=== PATIENT | female | born 1985 | race Caucasian/White ===

== ENCOUNTER 2017-08-29 09:31 | Inpatient (IN) | payer OTHER ==
[2017-08-29] MEDS ORDERED: LACTATED RINGERS 1,000 ML IV ONE (10:23)
[2017-08-29 11:09] LABS: Bilirubin,Urine NEG (Negative); Blood,Urine MOD (Negative); Color,Urine Straw (Yellow); Mucus,Urine FEW /HPF; Protein,Urine <15 mg/dL mg/dL (Negative); Urobilinogen,Urine < 2.0 mg/dL (<2.0)
[2017-08-29] MEDS ORDERED: DILAUDID ONE (11:42)
[2017-08-29] MEDS ORDERED: QUELICIN ONE (11:42)
[2017-08-29] MEDS ORDERED: DIPRIVAN 10 MG/ML IV ONE (11:42)
[2017-08-29] MEDS ORDERED: XYLOCAINE MPF 2% ONE (11:42)
[2017-08-29] MEDS ORDERED: CELESTONE SOLUSPAN IM ONE ×2 (11:48→11:52)
[2017-08-29] MEDS ORDERED: MAGNESIUM SULFATE 4GM/100ML 4 GM/100 ML BAG IV ONE (11:48)
[2017-08-29] MEDS ORDERED: PEPCID IV ONE (11:51)
[2017-08-29] MEDS ORDERED: BICITRA PO ONE (11:51)
[2017-08-29] MEDS ORDERED: REGLAN IV ONE (11:51)
[2017-08-29] MEDS ORDERED: EMLA TP PRN (11:51)
--- NOTE | 2017-08-29 11:58 | History and Physical Report ---
History of Present Illness Date of examination: 08/29/17 Date of admission: 08/29/17 09:32 Chief complaint: labor History of present illness: 31-year-old at 26+6 weeks presents in labor, she is a [facility] patient. Essential history this patient with prior history of delivery at 23 weeks (in 2013) with demise now on 17 HP presents in labor. She had vaginal bleeding and cramping earlier this morning at home and decided to present to triage. In triage, ultrasound shows no evidence of abruption. Cervix appears to be open with feet in cervix. Appears dilated at 2.8 cm. On my exam, feet could be palpated in the vagina. heart tones present Past History Past Medical History: no pertinent history Past Surgical History: no surgical history [facility] History: denies: chlamydia, gonorrhea, hepatitis B, hepatitis C, HIV, syphilis Social history: single, full code. denies: smoking, alcohol abuse, prescription drug abuse, IV drug use - Obstetrical History Expected Date of Delivery: 11/29/17 Actual Gestation: 26 Week(s) 6 Day(s) : 2 Para: 1 (PTD at 23 wks w/ demise) Medications and Allergies Allergies Allergy/AdvReac Type Severity Reaction Status Date / Time No Known Allergies Allergy Verified 08/29/17 10:05 Home Medications Medication Instructions Recorded Confirmed Last Taken Type Hydroxyprogesterone Caproate 250 mg IM QWEEK 08/29/17 08/29/17 08/26/17 12:00 History [[place]] 1 Vit-Fe Fumar-FA [ 1 tab PO QDAY 08/29/17 08/29/17 08/28/17 21: 00 History Vitamin] 1 Active Meds: Active Medications Betamethasone Acet/Betameth SodPhos (Celestone Soluspan) 12 mg IM ONCE ONE Stop: 08/29/17 11:53 Citric Acid/Sodium Citrate (Bicitra) 30 ml PO ONCE ONE Stop: 08/29/17 11:52 Famotidine (Pepcid) 20 mg IV ONCE ONE Stop: 08/29/17 11:52 Cefazolin Sodium (Ancef/Sterile Water 2 Gm/20 Ml) 2 gm in 20 mls @ 80 mls/hr IV PREOP NR; Protocol Stop: 08/29/17 23:59 Lactated Ringer's (Lactated Ringers) 1,000 mls @ 2,250 mls/hr IV PREOP NATALIE Stop: 08/30/17 12:27 Oxytocin/Sodium Chloride (Pitocin/Ns 20 Unit/1000ml Drip) 20 units in 1,000 mls @ 0 mls/hr IV TITR NATALIE Lidocaine/Prilocaine (Emla) 1 applic TP ONCE PRN PRN Reason: for jeffery catheter insertion Metoclopramide HCl (Reglan) 10 mg IV ONCE ONE Stop: 08/29/17 11:52 Review of Systems Constitutional: no fever, no chills, no weakness, no malaise Eyes: no diplopia, no discharge, no photophobia Cardiovascular: no chest pain, no syncope, no lightheadedness, no shortness of breath, no dyspnea on exertion, no high blood pressure, no decreased exercise tolerance Respiratory: no cough with sputum, no excessive sputum, no hemoptysis, no shortness of breath, no dyspnea on exertion Gastrointestinal: no abdominal pain, no nausea, no vomiting Genitourinary: vaginal bleeding, contractions, no vaginal discharge, no leakage of fluid - Vital Signs Vital signs: Vital Signs Temp Pulse Resp Pulse Ox 97.4 F L 111 H 20 97 08/29/17 09:45 08/29/17 09:45 08/29/17 09:45 08/29/17 09:45 Temp Pulse Resp BP Pulse Ox 97.4 F L 84 20 116/68 97 08/29/17 09:45 08/29/17 11:55 08/29/17 09:45 08/29/17 11:55 08/29/17 11:32 - Physical Exam Cardiovascular: Regular rate, Normal S1, Normal S2 Lungs: Positive: Clear to auscultation, Normal air movement Abdomen: Positive: normal appearance, soft. Negative: distention, tenderness, guarding, rigidity Genitourinary (Female): Positive: normal external genitalia Cervix: Positive: other (Cervix Open with feet palpated) Uterus: Positive: enlarged (EFW ~ 1500 g) Adnexa: both: normal Extremities: Positive: normal - Obstetrical Cervical Dilatation: 4 ( feet in vagina) Results All other labs normal. Assessment and Plan A: 31-year-old at 26+6 weeks with labor and breech presentation P: -Proceed to or KERI -She received Celestone 1 and magnesium -She has been consented - Patient Problems (1) 26 weeks gestation of Current Visit: Yes Status: Acute (2) Breech presentation Current Visit: Yes Status: Acute (3) Active labor Current Visit: Yes Status: Acute
[2017-08-29] MEDS ORDERED: PITOCin/NS 20 UNIT/1000ML DRIP 20 UNITS/1,000 ML BAG IV SCH ×2 (12:00→14:00)
[2017-08-29] MEDS ORDERED: LACTATED RINGERS 1,000 ML IV SCH (12:00)
[2017-08-29] MEDS ORDERED: ANCEF/STERILE WATER 2 GM/20 ML 2 GM/20 ML SYRINGE IV NR (12:00)
[2017-08-29] MEDS ORDERED: WATER FOR IRRIG STERILE IR ONE (12:00)
[2017-08-29] MEDS ORDERED: NACL 0.9% IR ONE (12:10)
[2017-08-29] MEDS ORDERED: ANCEF/STERILE WATER 2 GM/20 ML IV ONE (12:10)
[2017-08-29] MEDS ORDERED: NACL 0.9% 1000 ML 1,000 ML ONE (12:14)
[2017-08-29] MEDS ORDERED: METHERGINE IM ONE (12:31)
[2017-08-29] MEDS ORDERED: NEO SYNEPHRINE/NS Syringe(OR USE) IV ONE (12:33)
[2017-08-29] MEDS ORDERED: ZOFRAN ONE (12:44)
[2017-08-29 13:01] LABS: Basophils # (Auto) 0.1 K/mm3 (0.0-0.1); Basophils % (Auto) 0.7 % (0.0-1.8); Eosinophils % (Auto) 0.4 % (0.0-4.3); Hematocrit 33.6 % (30.3-42.9); Hemoglobin 11.3 gm/dl (10.1-14.3); Lymphocytes # (Auto) 1.4 K/mm3 (1.2-5.4); Lymphocytes % (Auto) 15.6 % (13.4-35.0); Mean Corpuscular HGB Conc 34 % (30-34); Mean Corpuscular Hemoglobin 31 pg (28-32); Mean Corpuscular Volume 92 fl (79-97); Monocytes # (Auto) 0.6 K/mm3 (0.0-0.8); Platelet Count 132 K/mm3 (140-440); Red Blood Count 3.65 M/mm3 (3.65-5.03); Red Cell Distribution Width 14.4 % (13.2-15.2)
--- NOTE | 2017-08-29 13:01 | Operative Report ---
Operative Report Operative Report: DATE: 08/29/2017 PREOPERATIVE DIAGNOSIS: 31-year-old at 26+6 weeks, breech presentation, labor with feet in the vagina, POSTOP DIAGNOSIS: As Above NAME OF PROCEDURE: Primary low transverse section SURGEON: MILA DARNELL MD PUBLICITY MANAGER: [] ANESTHESIA: Gen. EBL: 900 mL PATHOLOGY SPECIMEN: Placenta URINE OUTPUT:[] FINDINGS: Baby girl in [place]ling breech presentation, time of 1217, Nuchal cord x 2, weight is 1125 g or 2.48 pounds, Apgars 4, 7, and 8, normal uterus tubes and ovaries bilaterally DESCRIPTION OF PROCEDURE: After informed consent, patient was taken to the operating room where she was prepped and draped in a sterile fashion. Pfannestial incision was performed 2 cm above the pubic symphysis. This was then carried down to the underlying rectus fascia which was scored in the midline. The fascial incision was extended laterally with the use of Kenney scissors, anterior leaf was then grasped with Bon's elevated dissected sharply and bluntly off the underlying rectus. In a similar fashion the inferior leaf was grasped elevated dissected sharply and bluntly off the underlying rectus. The rectus was in the midline and the peritoneal cavity was entered without difficulty. After good visualization of the bladder the peritoneal layer was extended up and down; bladder blade was placed in the patient's pelvic cavity, bladder flap could not be created. A hysterotomy incision was then performed with bloody amniotic fluid noted. Infant in footling breech presentation was delivered without difficulty in the usual manner; cord was clamped cut and was handed over to waiting NICU staff. The placenta was then delivered intact, the uterus was then exteriorized cleared of all clots and debris. Her hysterotomy incision was then closed in a running locked fashion with 0 Vicryl on a CTX; using the same suture were able to imbricate the initial layer. The uterus was then returned to the patient's pelvic cavity; the peritoneal edges were grasped with hemostats and Maryse's; irrigation was used to clear the gutters of all clots and debris. Tisseel hemostatic agent was applied copiously over the hysterotomy incision. The peritoneal layer was closed in a running fashion with 3-0 Vicryl; the rectus was reapproximated with a single ahxivi-ln-tbbiz stitch. The fascia was then closed in a running fashion with 0 Vicryl; the subcutaneous layer was reapproximated with a single lodvrb-bb-[id number] stitch. The skin was then closed in a subcuticular manner with 4-0 Monocryl. She tolerated the procedure well lap and instrument counts were correct 2, she did receive 2 grams of Ancef prior to the procedure. She is transferred to PACU in stable condition.
[2017-08-29] MEDS ORDERED: PHENERGAN PR PRN (13:02)
[2017-08-29] MEDS ORDERED: MILK OF MAGNESIA PO PRN (13:02)
[2017-08-29] MEDS ORDERED: NARCAN 0.4 MG/1 ML IV PRN ×2 (13:02)
[2017-08-29] MEDS ORDERED: MYLICON PO PRN (13:02)
[2017-08-29] MEDS ORDERED: TUCKS PAD TP PRN (13:02)
[2017-08-29] MEDS ORDERED: MOTRIN PO PRN (13:02)
[2017-08-29] MEDS ORDERED: ZOFRAN IV PRN ×2 (13:02)
[2017-08-29] MEDS ORDERED: PERCOCET 5/325 PO PRN (13:02)
[2017-08-29] MEDS ORDERED: SENOKOT PO PRN (13:02)
[2017-08-29] MEDS ORDERED: BENADRYL IV PRN (13:02)
[2017-08-29] MEDS ORDERED: LANSINOH TP PRN (13:02)
[2017-08-29] MEDS ORDERED: TYLENOL PO PRN (13:02)
[2017-08-29] MEDS ORDERED: ANUCORT-HC PR PRN (13:02)
[2017-08-29] MEDS ORDERED: TORADOL IV PRN ×2 (13:02→13:14)
[2017-08-29] MEDS ORDERED: DILAUDID IV PRN (13:14)
[2017-08-29] MEDS ORDERED: TORADOL ONE (13:31)
[2017-08-29] MEDS ORDERED: SODIUM CHLORIDE FLUSH SYRINGE 10 ML IV NR (14:00)
[2017-08-29] MEDS ORDERED: MORPHINE PCA 30MG/30ML IV SCH (14:00)
[2017-08-29] MEDS ORDERED: NACL 0.9% 1000 ML 1,000 ML IV SCH (14:00)
[2017-08-29] MEDS: D5LR 1,000 ML IV SCH (18:20)
[2017-08-30 01:21] LABS: Hematocrit 27.9 % (30.3-42.9); Hemoglobin 9.2 gm/dl (10.1-14.3)
[2017-08-30] MEDS: D5LR 1,000 ML IV SCH (01:40)
[2017-08-30] MEDS: SENOKOT S PO SCH ×2 (09:59→20:31)
[2017-08-30] MEDS: PRENATAL VITAMIN PO SCH (09:59)
[2017-08-30] MEDS: FEOSOL PO SCH (09:59)
--- NOTE | 2017-08-30 10:00 | Progress Note ---
Assessment and Plan A: POD #1 Asymptomatic Anemia P: Follow Routine PostOp orders Continue FESO4 Subjective - Subjective Date of service: 08/30/17 Patient reports: appetite normal, voiding normally, pain well controlled, flatus : in NICU Objective - Vital Signs Latest vital signs: Vital Signs Temp Pulse Resp BP BP Pulse Ox 08/30/17 08:25 97.7 F 63 20 105/64 100 08/30/17 03:10 98.3 F 64 16 94/53 08/30/17 00:33 98.8 F 67 18 89/50 08/29/17 20:17 98.4 F 78 18 101/61 08/29/17 18:23 16 08/29/17 16:45 97.9 F 80 18 107/65 08/29/17 16:00 20 08/29/17 15:15 98.6 F 96 H 16 111/64 95 08/29/17 14:45 107 H 20 117/66 99 08/29/17 14:26 16 08/29/17 14:05 98.1 F 92 H 16 114/71 99 08/29/17 13:56 18 08/29/17 13:50 87 18 114/66 99 08/29/17 13:35 89 18 113/70 99 08/29/17 13:20 82 18 113/67 99 08/29/17 13:15 88 18 110/68 99 08/29/17 13:10 84 20 107/65 100 08/29/17 13:05 97.7 F 101 H 20 112/58 100 08/29/17 12:05 96 H 124/72 08/29/17 11:55 84 116/68 08/29/17 11:32 105 H 97 08/29/17 11:27 101 H 97 08/29/17 11:22 84 96 08/29/17 11:17 86 97 08/29/17 11:12 95 H 96 08/29/17 11:07 87 97 08/29/17 11:02 80 97 08/29/17 10:57 95 H 97 08/29/17 10:52 84 96 08/29/17 10:47 93 H 97 08/29/17 10:42 84 97 08/29/17 10:37 103 H 97 08/29/17 10:32 103 H 97 08/29/17 10:27 111 H 97 08/29/17 10:22 106 H 97 08/29/17 10:17 95 H 97 08/29/17 10:12 105 H 97 08/29/17 10:07 90 98 Intake and Output 08/29/17 08/30/17 08/30/17 22:59 06:59 14:59 Intake Total 360 1516.667 Output Total 1200 1800 Balance -840 -283.333 Intake: IV 916.667 D5lr 1,000 ml @ 125 mls/ 916.667 hr IV DIRECT NATALIE Rx#: [id number] Oral 360 Intake, Free Water 600 Output: Urine 1200 1800 Indwelling Catheter 1200 1000 Void 800 Other: Total, Intake Amount 360 Total, Output Amount 600 400 - Exam Breasts: Present: normal Cardiovascular: Present: Regular rate Lungs: Present: Clear to auscultation, Normal air movement Abdomen: Present: normal appearance, soft, normal bowel sounds Uterus: Present: normal, firm, fundal height below umbilicus Extremities: Present: normal Incision: Present: normal, dry, dressed - Labs Labs: Abnormal lab results 08/29/17 08/30/17 Range/Units 11:40 00:54 Hgb 9.2 L (10.1-14.3) gm/dl Hct 27.9 L (30.3-42.9) % Plt Count 132 L (140-440) K/mm3 Seg Neutrophils % 76.3 H (40.0-70.0) %
[2017-08-31] MEDS: SENOKOT S PO SCH (11:15)
[2017-08-31] MEDS: FEOSOL PO SCH (11:15)
[2017-08-31] MEDS: PRENATAL VITAMIN PO SCH (11:15)
--- NOTE | 2017-08-31 11:54 | Progress Note ---
Assessment and Plan A: POD #2 Asymptomatic Anemia P: Follow Routine PostOp orders Continue FESO4 D/C Home in the AM RTO in One Week Subjective - Subjective Date of service: 08/31/17 Patient reports: appetite normal, voiding normally, pain well controlled, flatus , ambulating normally [place]: in NICU Objective - Vital Signs Latest vital signs: Vital Signs Temp Pulse Resp BP BP Pulse Ox 08/31/17 08:10 98.2 F 64 18 94/53 08/31/17 07:57 98.2 F 18 94/53 08/31/17 03:57 18 08/31/17 02:57 18 08/31/17 00:15 97.8 F 66 16 92/59 08/30/17 16:57 98.1 F 86 20 100/63 100/63 96 Intake and Output 08/30/17 08/31/17 08/31/17 22:59 06:59 14:59 Intake Total 120 300 Balance 120 300 Intake: Intake, Free Water 120 300 Other: Voiding Method Toilet # Voids Void 1 - Exam Breasts: Present: normal Cardiovascular: Present: Regular rate Lungs: Present: Clear to auscultation, Normal air movement Abdomen: Present: normal appearance, soft, normal bowel sounds Uterus: Present: normal, firm, fundal height below umbilicus Extremities: Present: normal Incision: Present: normal, dry, intact
--- NOTE | 2017-08-31 11:57 | Discharge Summary ---
Providers - Providers Date of Admission: 08/29/17 09:32 Date of discharge: 09/01/17 Attending physician: ALEX BALTAZAR MD Primary care physician: ALEX BALTAZAR MD Hospitalization Reason for admission: labor Delivery: Procedure: primary low transverse Episiotomy: none Laceration: none Incision: normal, dry, intact Other procedures: none complications: none Discharge diagnosis: delivery baby: female Condition at discharge: Good Disposition: DC-01 TO HOME OR SELFCARE Plan - Discharge Medications Prescriptions: Ibuprofen [Motrin 600 MG tab] 600 mg PO Q8H PRN #30 tablet PRN Reason: Pain Multivitamin with Iron [Multivitamins with Iron] 1 each PO DAILY #30 tablet oxyCODONE /ACETAMINOPHEN [Percocet 5/325] 1 tab PO Q6HR PRN #30 tablet PRN Reason: Pain - Provider Discharge Summary Activity: routine, no sex for 6 weeks, no heavy lifting 4 weeks, no strenuous exercise Diet: routine Instructions: routine Additional instructions: [] Smoking cessation referral if applicable(refer to patient education folder for contact #) [] Refer to [facility] Booklet Call your doctor immediately for: * Fever > 100.5 * Heavy vaginal bleeding ( >1 pad per hour) * Severe persistent headache * Shortness of breath * Reddened, hot, painful area to leg or breast * Drainage or odor from incision. * Keep incision clean and dry at all times and follow doctor's instructions regarding bathing/showering - Follow up plan Follow up: ALEX BALTAZAR MD [Primary Care Provider] - 7 Days
[2017-09-01] MEDS: SENOKOT S PO SCH ×2 (06:08→10:59)
[2017-09-01] MEDS: FEOSOL PO SCH (10:58)
[2017-09-01] MEDS: PRENATAL VITAMIN PO SCH (10:58)
[2017-09-01 18:01] VITALS: BP 112/81
--- NOTE | 2017-09-03 12:54 | Ultrasound Report ---
OB ULTRASOUND FOLLOWUP - TRANSABDOMINAL AND TRANSVAGINAL INDICATION: History of labor, vaginal bleeding. Evaluate EFW, cervical length, placenta placement/status. COMPARISON: None similar during this gestation. TECHNIQUE: Transabdominal grayscale ultrasound with Doppler interrogation. Transvaginal cervical evaluation also performed. Gestation: Pina Position: Breech Amniotic Fluid: WNL (7-24 cm) BRITTANI = 12 cm Placenta: Posterior, fundal; no evidence of abruption. Placental Grade: Zero Heart Rate: 156 BPM Cervical length: Zero cm (Normal > 3 cm); cervix appears dilated up to 2.8 cm as on endovaginal image 2, containing fluid and possibly the feet. BPD: 6.1 cm = 24 w 5 d HC: 24.9 cm = 27 w 0 d AC: 23.4 cm = 27 w 5 d FL: 5.1 cm = 27 w 2 d HC/AC Ratio: 1.06 Cephalic Index: 69.3 Estimated Weight: 1057 grams Clinical age = 26 w 6 d EDC: 11/29/2017 US Gest. Age = 26 w 5 d EDC: 11/30/2017 CONCLUSION: Single, live intrauterine gestation with ultrasound estimated age of 26 weeks and 5 days and EDC of 11/30/2017, currently in breech lie with feet extending into the cervix/cervical incompetence, as detailed above. Please also correlate clinically. Thank you for the opportunity to participate in this patient's care.
== END 2017-09-01 15:45 | disposition home or self-care (01) | DRG 765 ==
LOC: TRG 09:31 → APU 09:32 → TRG 09:33 → OB 14:08
PROVIDERS: ADMIT Obstetrics & Gynecology; ATTEND Obstetrics & Gynecology
PROC: 10D00Z1 Extraction of Products of Conception, Low, Open Approach (ICD-10-PCS; principal; 2017-08-29)
DX: O32.1XX0 Maternal care for breech presentation, not applicable or unspecified (principal); O60.14X0 Preterm labor third trimester with preterm delivery third trimester, not applicable or unspecified; O99.03 Anemia complicating the puerperium; D64.9 Anemia, unspecified; Z3A.26 26 weeks gestation of pregnancy; Z37.0 Single live birth; Z79.899 Other long term (current) drug therapy
CPT/HCPCS: 36415; 59025; 76816; 76817; 81001; 85014; 85018; 85025; 86850; 86900; 86901; 88305; 96360; 96372; C9250; J0330; J0690; J0702; J1170; J1885; J2210; J2270; J2370; J2405; J2590; J2704; J2765; J3475; J7030; J7120; J7121

== ENCOUNTER 2019-02-13 07:42 | Emergency (ER) | payer MEDICAID, OTHER ==
[2019-02-13 07:56] VITALS: BP 125/82
--- NOTE | 2019-02-13 08:20 | Emergency Department Report ---
ED Female HPI - General Chief complaint: Vaginal Bleeding Stated complaint: POS PREG TEST AND BLEEDING Time Seen by Provider: 02/13/19 08:15 Source: family Mode of arrival: Ambulatory Limitations: No Limitations - History of Present Illness Initial comments: Patient is 33 years old female 3 para 1 with one miscarriage before. Patient presented to the ER complaining of three-day history of vaginal bleeding with lower abdominal cramping. Patient stated that she had a positive test. Patient denied any dizziness, shortness of breath or chest pain. MD Complaint: vaginal bleeding, pelvic pain - Related Data Home Medications Medication Instructions Recorded Confirmed Last Taken Hydroxyprogesterone Caproate 250 mg IM QWEEK 08/29/17 08/29/17 08/26/17 12:00 [[place]] 1 Vit-Fe Fumar-FA [ 1 tab PO QDAY 08/29/17 08/29/17 08/28/17 21:00 Vitamin] 1 Previous Rx's Medication Instructions Recorded Last Taken Type Ibuprofen [Motrin 600 MG tab] 600 mg PO Q8H PRN #30 tablet 08/29/17 Unknown Rx Multivitamin with Iron 1 each PO DAILY #30 tablet 08/29/17 Unknown Rx [Multivitamins with Iron] oxyCODONE /ACETAMINOPHEN [Percocet 1 tab PO Q6HR PRN #30 tablet 08/29/17 Unknown Rx 5/325] Allergies Allergy/AdvReac Type Severity Reaction Status Date / Time No Known Allergies Allergy Verified 08/29/17 10:05 ED Review of Systems ROS: Stated complaint: POS PREG TEST AND BLEEDING Other details as noted in HPI Comment: All other systems reviewed and negative Constitutional: denies: chills, fever Respiratory: denies: cough, shortness of breath Cardiovascular: denies: chest pain Gastrointestinal: abdominal pain. denies: nausea, vomiting Genitourinary: abnormal menses Neurological: denies: headache, weakness ED Past Medical Hx - Past Medical History Hx Hypertension: No Hx Congestive Heart Failure: No Hx Diabetes: No Hx Deep Vein Thrombosis: No Hx Renal Disease: No Hx Sickle Cell Disease: No Hx Seizures: No Hx Asthma: No Hx COPD: No Hx HIV: No - Surgical History Additional Surgical History: - Social History Smoking Status: Never Smoker Substance Use Type: None - Medications Home Medications: Home Medications Medication Instructions Recorded Confirmed Last Taken Type Hydroxyprogesterone Caproate 250 mg IM QWEEK 08/29/17 08/29/17 08/26/17 12:00 History [[place]] 1 Ibuprofen [Motrin 600 MG tab] 600 mg PO Q8H PRN #30 tablet 08/29/17 Unknown Rx Multivitamin with Iron 1 each PO DAILY #30 tablet 08/29/17 Unknown Rx [Multivitamins with Iron] Vit-Fe Fumar-FA [ 1 tab PO QDAY 08/29/17 08/29/17 08/28/17 21:00 History Vitamin] 1 oxyCODONE /ACETAMINOPHEN [Percocet 1 tab PO Q6HR PRN #30 tablet 08/29/17 Unknown Rx 5/325] ED Physical Exam - General Limitations: No Limitations General appearance: alert, in no apparent distress - Head Head exam: Present: atraumatic, normocephalic, normal inspection - Eye Eye exam: Present: normal appearance - ENT ENT exam: Present: normal exam, normal orophraynx, mucous membranes moist - Neck Neck exam: Present: normal inspection. Absent: tenderness, meningismus - Respiratory Respiratory exam: Present: normal lung sounds bilaterally - Cardiovascular Cardiovascular Exam: Present: regular rate, normal rhythm, normal heart sounds - GI/Abdominal GI/Abdominal exam: Present: soft, normal bowel sounds. Absent: distended, tenderness, guarding, rebound, rigid, organomegaly, mass, bruit, pulsatile mass, hernia - Extremities Exam Extremities exam: Present: normal inspection, full ROM, normal capillary refill. Absent: tenderness, pedal edema, calf tenderness - Back Exam Back exam: Present: normal inspection, full ROM. Absent: CVA tenderness (R), CVA tenderness (L), muscle spasm, paraspinal tenderness, vertebral tenderness - Neurological Exam Neurological exam: Present: alert, oriented X3, CN II-XII intact - Psychiatric Psychiatric exam: Present: normal mood - Skin Skin exam: Present: warm, intact, normal color ED Course Vital Signs 02/13/19 02/13/19 07:54 08:50 Temperature 98.0 F Pulse Rate 74 Respiratory 16 16 Rate Blood Pressure 125/82 O2 Sat by Pulse 98 98 Oximetry ED Medical Decision Making - Lab Data Result diagrams: 02/13/19 08:24 - Radiology Data Radiology results: report reviewed Referring Physician: NACHO DELGADO Patient Name: IDA NIÑO Date of : 1985 Sex: Female Report Date: 2019-02-13 Report Status: Finalized Findings [facility] [address] [place] [address] Ultrasound Report Signed Patient: IDA NIÑO MR #: [id number] : 1985 Acct:[id number] Age/Sex: 33 / F ADM Date: 02/13/19 Loc: ED Attending Dr: Ordering Physician: NACHO DELGADO Date of Service: 02/13/19 Procedure(s): US OB transvaginal Accession Number(s): [id number] cc: NACHO DELGADO ULTRASOUND OBSTETRIC first trimester Duplex ultrasound with spectral technique of both ovaries INDICATION / CLINICAL INFORMATION: ABDOMINAL PAIN. TECHNIQUE: Transabdominal. Transvaginal duplex ultrasound with spectral technique was also performed in both ovaries. COMPARISON: None available. FINDINGS: No IUP is visualized. The uterus measures 9.2 x 4.7 x 5.9 cm. Endometrial stripe is thickened and heterogeneous measuring 14 mm. ADNEXA: Both ovaries appear within normal limits without cyst or mass. Right ovary measures 3.6 x 1.9 x 2.6 cm. Left ovary measures 3.3 x 1.8 x 3.0 cm. FREE FLUID: None. Duplex ultrasound: Normal color Doppler and spectral waveforms are seen within both ovaries without torsion. IMPRESSION: 1. No intrauterine . Thickened heterogeneous endometrial stripe may be secondary to recent miscarriage. Please correlate with follow-up beta hCG and ultrasound in order to exclude nonvisualized early IUP or ectopic. Signer Name: Kush Lopez MD Signed: 02/13/2019 10:04 AM Workstation Name: [id number] Transcribed By: TL Dictated By: Kush Lopez MD Electronically Authenticated By: Kush Lopez MD Signed Date/Time: 02/13/19 1004 DD/ 1001 TD/TT: - Medical Decision Making Patient is 33 years old female 3 para 1 with one miscarriage before. Patient presented to the ER complaining of three-day history of vaginal bleeding with lower abdominal cramping. Patient stated that she had a positive test. Patient denied any dizziness, shortness of breath or chest pain. Patient remained asymptomatic in the emergency room. Labs reviewed and is unremarkable. Beta hCG is 146. Ultrasound showed no intrauterine , possibility of miscarriage and early IUP or early ectopic cannot be seen at this moment. I discussed with the patient the results of the ultrasound and advised patient to follow-up with her primary care physician for repeat of beta-hCG and ultrasound patient also advised that she can return back to the ER for that. Patient and her understood the instructions very well. Critical care attestation.: If time is entered above; I have spent that time in minutes in the direct care of this critically ill patient, excluding procedure time. ED Disposition Clinical Impression: Vaginal bleeding during , Abdominal pain affecting Disposition: DC-01 TO HOME OR SELFCARE Is pt being admited?: No Condition: Stable Instructions: Abdominal Pain in (ED) Referrals: PRIMARY CARE, [Primary Care Provider] - 3-5 Days
[2019-02-13 08:36] LABS: Basophils # (Auto) 0.1 K/mm3 (0.0-0.1); Basophils % (Auto) 0.7 % (0.0-1.8); Eosinophils # (Auto) 0.1 K/mm3 (0.0-0.4); Eosinophils % (Auto) 1.6 % (0.0-4.3); Hematocrit 39.7 % (30.3-42.9); Lymphocytes # (Auto) 1.7 K/mm3 (1.2-5.4); Lymphocytes % (Auto) 24.5 % (13.4-35.0); Mean Corpuscular HGB Conc 33 % (30-34); Mean Corpuscular Volume 89 fl (79-97); Monocytes # (Auto) 0.6 K/mm3 (0.0-0.8); Monocytes % (Auto) 7.9 % (0.0-7.3); Red Blood Count 4.46 M/mm3 (3.65-5.03); Red Cell Distribution Width 14.8 % (13.2-15.2)
[2019-02-13 08:41] LABS: Bilirubin,Urine NEG (Negative); Blood,Urine MOD (Negative); Color,Urine Yellow (Yellow); Mucus,Urine FEW /HPF; Protein,Urine <15 mg/dL mg/dL (Negative); Urobilinogen,Urine < 2.0 mg/dL (<2.0)
[2019-02-13 09:40] LABS: Platelet Count 160 K/mm3 (140-440)
--- NOTE | 2019-02-13 10:08 | Ultrasound Report ---
ULTRASOUND OBSTETRIC first trimester Duplex ultrasound with spectral technique of both ovaries INDICATION / CLINICAL INFORMATION: ABDOMINAL PAIN. TECHNIQUE: Transabdominal. Transvaginal duplex ultrasound with spectral technique was also performed in both ova rei. COMPARISON: None available. FINDINGS: No IUP is visualized. The uterus measures 9.2 x 4.7 x 5.9 cm. Endometrial stripe is thickened and het erogeneous measuring 14 mm. ADNEXA: Both ovaries appear within normal limits without cyst or mass. Right ovary measures 3.6 x 1.9 x 2.6 cm. Left ovary measures 3.3 x 1.8 x 3.0 cm. FREE FLUID: None. Duplex ultrasound: Normal color Doppler and spectral waveforms are seen within both ovaries without t orsion. IMPRESSION: 1. No intrauterine . Thickened heterogeneous endometrial stripe may be secondary to recent m iscarriage. Please correlate with follow-up beta hCG and ultrasound in order to exclude nonvisualized early IUP or ectopic. Signer Name: Kush Lopez MD Signed: 02/13/2019 10:04 AM Workstation Name: [id number]
== END 2019-02-13 10:30 | disposition home or self-care (01) ==
LOC: ED 07:42
DX: O20.8 Other hemorrhage in early pregnancy (principal); Z79.899 Other long term (current) drug therapy; Z3A.01 Less than 8 weeks gestation of pregnancy
CPT/HCPCS: 36415; 76801; 76817; 81001; 84702; 85025; 86900; 86901